=== PATIENT | female | born 1990 | race Caucasian/White ===

== ENCOUNTER 2023-12-11 14:04 | Emergency (ER) | payer SELFPAY ==
[2023-12-11] MEDS: Ketorolac 30 MG/ML SDV IVPUSH ONE (14:56)
[2023-12-11] MEDS: diphenhydrAMINE 50 MG/ML SDV IVPUSH ONE (14:58)
[2023-12-11 15:00] LABS: BASOPHILS ABSOLUTE AUTO 0.2 K/mm3 (0.0-0.2); BASOPHILS PERCENT AUTO 1.8 % (0.0-1.0); EOSINOPHILS ABSOLUTE AUTO 0.4 K/mm3 (0.0-0.4); EOSINOPHILS PERCENT AUTO 4.3 % (0.0-6.0); HEMATOCRIT 37.8 % (37.0-47.0); HEMOGLOBIN 12.3 gm/dl (12.0-16.0); IMMATURE GRAN ABSOLUTE AUTO 0.04 K/mm3 (0.00-0.05); IMMATURE GRAN PERCENT AUTO 0.4 % (0.0-0.4); LYMPHOCYTES ABSOLUTE AUTO 2.6 K/mm3 (1.0-4.8); LYMPHOCYTES PERCENT AUTO 28.7 % (24.0-44.0); MEAN CORPUSCULAR HEMOGLOBIN 31.9 pg (28.0-32.0); MEAN CORPUSCULAR HGB CONC 32.5 g/dl (32.0-36.0); MEAN CORPUSCULAR VOLUME 97.9 fl (83.0-99.0); MEAN PLATELET VOLUME 8.6 fl (9.4-12.3); MONOCYTES ABSOLUTE AUTO 0.7 K/mm3 (0.0-0.8); MONOCYTES PERCENT AUTO 8.1 % (0.0-8.0); NEUTROPHILS ABSOLUTE AUTO 5.1 K/mm3 (1.8-7.7); NEUTROPHILS PERCENT AUTO 56.7 % (41.0-71.0); PLATELET COUNT,PLT 558 K/mm3 (150-400); RED BLOOD CELL COUNT 3.86 M/mm3 (4.10-5.30); WHITE BLOOD CELL COUNT,WBC 9.05 K/mm3 (3.9-11.3)
[2023-12-11] MEDS: Metoclopramide 10 MG/2 ML SDV IVPUSH ONE (15:00)
[2023-12-11] MEDS: Lactated Ringers 1,000 ML IV ONE (15:02)
[2023-12-11 15:48] LABS: ALBUMIN 3.6 g/dl (3.4-5.0); ANION GAP 20.8 (5-15); BILIRUBIN TOTAL 0.2 mg/dL (0.2-1.0); CALCIUM 8.9 mg/dL (8.5-10.1); CREATININE 0.7 mg/dL (0.55-1.02); EST CRCL DRUG DOSING (CG) 88.72 mL/min; POTASSIUM,K 3.8 mEq/L (3.5-5.1); PROTEIN TOTAL,TP 7.2 g/dl (6.4-8.2)
[2023-12-11] MEDS: Acetaminophen/HYDROcodone 325-5 MG Tab PO ONE (17:01)
== END 2023-12-11 17:05 | disposition home or self-care (01) ==
LOC: JD.ED 14:04
DX: S06.5XAA Traumatic subdural hemorrhage with loss of consciousness status unknown, initial encounter (principal); G43.909 Migraine, unspecified, not intractable, without status migrainosus; T74.11XA Adult physical abuse, confirmed, initial encounter; F17.210 Nicotine dependence, cigarettes, uncomplicated; Y04.8XXA Assault by other bodily force, initial encounter
CPT/HCPCS: 36415; 70450; 80053; 85025; 96361; 96374; 96375; 99284; A9270; J1200; J1885; J2765; J7120

== ENCOUNTER 2023-12-16 09:58 | Emergency (ER) | payer SELFPAY ==
[2023-12-16] MEDS: Ondansetron 4 MG Tab.DIS PO ONE (10:28)
== END 2023-12-16 12:30 | disposition home or self-care (01) ==
LOC: JD.ED 09:58
DX: S06.5XAA Traumatic subdural hemorrhage with loss of consciousness status unknown, initial encounter (principal); Z79.899 Other long term (current) drug therapy; X58.XXXA Exposure to other specified factors, initial encounter
CPT/HCPCS: 70450; 99284; A9270

== ENCOUNTER 2023-12-25 09:55 | Emergency (ER) | payer MEDICAID ==
[2023-12-25] MEDS ORDERED: Naloxone 0.4 MG/ML SDV IVPUSH PRN ×2 (11:09→14:13)
[2023-12-25 11:27] LABS: BASOPHILS ABSOLUTE AUTO 0.1 K/mm3 (0.0-0.2); EOSINOPHILS ABSOLUTE AUTO 0.4 K/mm3 (0.0-0.4); EOSINOPHILS PERCENT AUTO 3.2 % (0.0-6.0); HEMATOCRIT 35.9 % (37.0-47.0); HEMOGLOBIN 11.7 gm/dl (12.0-16.0); IMMATURE GRAN ABSOLUTE AUTO 0.03 K/mm3 (0.00-0.05); IMMATURE GRAN PERCENT AUTO 0.3 % (0.0-0.4); LYMPHOCYTES ABSOLUTE AUTO 1.6 K/mm3 (1.0-4.8); LYMPHOCYTES PERCENT AUTO 14.9 % (24.0-44.0); MEAN CORPUSCULAR HEMOGLOBIN 32.8 pg (28.0-32.0); MEAN CORPUSCULAR HGB CONC 32.6 g/dl (32.0-36.0); MEAN CORPUSCULAR VOLUME 100.6 fl (83.0-99.0); MEAN PLATELET VOLUME 9.2 fl (9.4-12.3); MONOCYTES ABSOLUTE AUTO 1.2 K/mm3 (0.0-0.8); MONOCYTES PERCENT AUTO 10.9 % (0.0-8.0); NEUTROPHILS ABSOLUTE AUTO 7.5 K/mm3 (1.8-7.7); NEUTROPHILS PERCENT AUTO 69.7 % (41.0-71.0); PLATELET COUNT,PLT 366 K/mm3 (150-400); RED BLOOD CELL COUNT 3.57 M/mm3 (4.10-5.30); WHITE BLOOD CELL COUNT,WBC 10.79 K/mm3 (3.9-11.3)
[2023-12-25 11:28] LABS: APPEARANCE,URINE CLEAR (Clear); BILIRUBIN,URINE NEGATIVE (Negative); COLOR,URINE YELLOW (Yellow); GLUCOSE,URINE NEGATIVE (Negative); KETONES,URINE NEGATIVE (Negative); LEUKOCYTE ESTERASE,URINE NEGATIVE (Negative); NITRITE,URINE NEGATIVE (Negative); OCCULT BLOOD,URINE NEGATIVE (Negative); PH,URINE 7.5 (5.0-8.0); PROTEIN,URINE NEGATIVE (Negative); UROBILINOGEN,URINE 0.2 (0.2-1.0)
[2023-12-25 11:47] LABS: A/G RATIO 0.9 (1-2); ALBUMIN 3.3 g/dl (3.4-5.0); BILIRUBIN TOTAL 0.3 mg/dL (0.2-1.0); BUN/CREATININE RATIO 12.9 (14-18); CALCIUM 9.2 mg/dL (8.5-10.1); CREATININE 0.7 mg/dL (0.55-1.02); EST CRCL DRUG DOSING (CG) 88.72 mL/min; PROTEIN TOTAL,TP 6.9 g/dl (6.4-8.2)
[2023-12-25] MEDS: Metoclopramide 10 MG/2 ML SDV IVPUSH ONE (12:07)
[2023-12-25] MEDS: Sodium Chloride 0.9% 1,000 ML IV SCH (12:07)
[2023-12-25] MEDS: diphenhydrAMINE 50 MG/ML SDV IVPUSH ONE (12:09)
[2023-12-25] MEDS: fentaNYL 100 MCG/2 ML SDV IVPUSH ONE ×2 (12:10→14:17)
== END 2023-12-25 14:20 ==
LOC: JD.ED 09:55
DX: G43.909 Migraine, unspecified, not intractable, without status migrainosus (principal); S06.5X0D Traumatic subdural hemorrhage without loss of consciousness, subsequent encounter; F17.210 Nicotine dependence, cigarettes, uncomplicated; Z79.899 Other long term (current) drug therapy; Y04.2XXD Assault by strike against or bumped into by another person, subsequent encounter
CPT/HCPCS: 36415; 70450; 80053; 81003; 81025; 85025; 96361; 96374; 96375; 96376; 99285; J1200; J2765; J3010; J7030

== ENCOUNTER 2024-01-04 09:40 | Emergency (ER) | payer SELFPAY ==
[2024-01-04] MEDS: HYDROmorphone 1 MG/ML Syringe IM ONE (10:49)
== END 2024-01-04 11:35 | disposition home or self-care (01) ==
LOC: JD.ED 09:40
DX: S06.5XAA Traumatic subdural hemorrhage with loss of consciousness status unknown, initial encounter (principal); Z79.899 Other long term (current) drug therapy; W50.0XXA Accidental hit or strike by another person, initial encounter
CPT/HCPCS: 70450; 96372; 99284; J1170; 99285

== ENCOUNTER 2025-03-18 12:06 | Emergency (ER) | payer BC, OTHER | END 2025-03-18 15:19 | disposition home or self-care (01) | LOC: JD.ED 12:06 | DX: S00.83XA Contusion of other part of head, initial encounter (principal); H72.92 Unspecified perforation of tympanic membrane, left ear; R07.89 Other chest pain; Z79.899 Other long term (current) drug therapy; Y04.8XXA Assault by other bodily force, initial encounter | CPT/HCPCS: 70450; 71101; 72125; 99284; A9270 ==